=== PATIENT | female | born 1990 | race Caucasian/White ===

== ENCOUNTER 2022-03-10 15:55 | Emergency (ER) | payer BC, MEDICAID, SELFPAY ==
[2022-03-10 16:26] VITALS: PULSE 60; TEMP 36.4; O2SAT 97; BMI 36.0
--- NOTE | 2022-03-10 16:31 | XRR_ITS ---
PROCEDURE INFORMATION: Exam: XR Chest Exam date and time: 03/10/2022 5:01 PM Age: 31 years old Clinical indication: Shortness of breath; Patient HX: SOB history chf cough TECHNIQUE: Imaging protocol: Radiologic exam of the chest. Views: 1 view. COMPARISON: CR XR chest 1V [id number] 09/06/2016 4:49 PM FINDINGS: Lungs: Medial right basilar opacity. Pleural spaces: Unremarkable. No pleural effusion. No pneumothorax. Heart/Mediastinum: Unremarkable. No cardiomegaly. Bones/joints: Unremarkable. XR/XR chest 1V portable [id number] IMPRESSION: Medial right basilar opacity, suspected pneumonia.
[2022-03-10 18:08] LABS: Influenza A by IFA negative (Negative); Influenza B by IFA negative (Negative)
[2022-03-10 18:09] LABS: SARS Covid-2 Antigen negative (Negative)
--- NOTE | 2022-03-10 18:46 | W.ED.SOB ---
HPI - SOB/Dyspnea General: Chief Complaint: Shortness of Breath/Dyspnea Stated Complaint: SOB Hard time breath Time Seen by Provider: 03/10/22 18:37 History of Present Illness: HPI Narrative: 31-year-old female comes in today with complaints of illness for 1-1/2 weeks. Patient reports that she started feeling better but over the past 2 days she started feeling worse with increased shortness of breath and cough. Patient appears nontoxic. Patient does smoke routinely. Review of Systems Const: Reports: body aches Resp: Reports: dyspnea and non-productive cough Physical Exam Const: COMMON NORMALS: alert HENMT: COMMON NORMALS: normocephalic HEAD & SCALP: normocephalic Neck/C-Spine: COMMON NORMALS: full ROM Resp: COMMON NORMALS: normal respiratory effort AUSCULTATION: crackles Laterality: right (Lower lung martino) GI: COMMON NORMALS: Soft to palpation PALPATION: Yes Soft to palpation Extremity: COMMON NORMALS: normal to inspection Neuro: SENSORIUM/ORIENTATION: Yes alert Skin: COMMON NORMALS: turgor normal GENERAL SKIN EXAM: turgor normal Course Vital Signs: Vital signs: Vital Signs Temperature 97.6 F 03/10/22 16:26 Pulse Rate 67 03/10/22 18:57 Respiratory Rate 18 03/10/22 18:57 Blood Pressure 138/81 03/10/22 18:57 Pulse Oximetry 97 03/10/22 18:57 Oxygen Delivery Me thod 03/10/22 18:57 MDM - SOB/Dyspnea Medical Decision Making 31-year-old female comes in today with illness for about 1-1/2 weeks. Patient has had increased shortness of breath over the past couple days. On exam patient has crackles in the right lower lung martino. Heart rates regular. Vital signs are normal. Differential diagnosis includes but not limited to pneumonia, COPD, effusion, CHF. Chest x-ray noted probable pneumonia in the right base. We will treat patient for right basilar pneumonia with doxycycline 100 mg twice daily for 10 days. Patient was also given an albuterol inhaler and 1 dose of dexamethasone 10 mg. Patient was recommended to follow-up with primary care in 1 week or return to the ER for worsening symptoms. Patient reported understanding. Lab Data Labs/Radiology: Radiology Impressions Chest X-Ray 03/10/22 16:31 IMPRESSION: Medial right basilar opacity, suspected pneumonia. Laboratory Results Influenza Type A Ag negative (Negative) 03/10/22 17:40 Influenza Type B Ag negative (Negative) 03/10/22 17:40 SARS-CoV-2 Ag (Rapid) negative (Negative) 03/10/22 17:40 Discharge Plan Discharge Patient Disposition: Home Clinical Impression: Pneumonia Qualifiers: Pneumonia type: due to unspecified organism Laterality: right Lung location: lower lobe of lung Qualified Code(s): J18.9 - Pneumonia, unspecified organism Condition: Stable Prescriptions: New doxycycline monohydrate 100 mg capsule 100 mg PO BID 10 Days Qty: 20 0RF albuterol sulfate 90 mcg/actuation HFA aerosol inhaler 2 inh inhalation Q4H PRN (Reason: shortness of breath or wheezing) Qty: 8.5 0RF Discharge Orders: Discharge ED (Routine); Ordered 03/10/22 Ordered By: Thien Siegel Discharge Diet: Usual diet Discharge Activity: Increase activity as tolerated Patient Instructions: Community Acquired Pneumonia (ED) Activity Restrictions/Additional Instructions: Take antibiotic doxycycline 100 mg 2 times a day for 10 days. Use albuterol inhaler 2 puffs every 4 hours as needed for shortness of breath, persistent coughing, or wheezing. I am encouraging you stop smoking. Make sure to drink plenty of water and fluids. Follow-up with primary care in 1 week for recheck. Return to emergency department for worsening symptoms such as severe chest pain, increasing shortness of breath, or new concerns. Coding Level of Care Code ED [employer] P[employer] Supervisor for Veronica Poe
[2022-03-10 18:57] VITALS: BP 138/81; PULSE 67; RESP 18; O2SAT 97
[2022-03-10] MEDS: dexamethasone 10 mg/mL INJ IM (19:10)
[2022-03-10] MEDS: doxycycline 100 mg Tablet PO (19:10)
[2022-03-10] MEDS: albuterol 8 gm MDI 2 PUFF INHALATION (20:21)
[2022-03-10 20:24] VITALS: PULSE 65; RESP 16; O2SAT 97
[2022-03-10 20:29] VITALS: PULSE 88; RESP 18; O2SAT 100
== END 2022-03-10 20:25 | disposition home or self-care (01) ==
PROVIDERS: Family Medicine; Emergency Provider Nurse Practitioner Family
DX: J18.9 Pneumonia, unspecified organism (principal); F17.200 Nicotine dependence, unspecified, uncomplicated; Z20.822 Contact with and (suspected) exposure to COVID-19
CPT/HCPCS: 71045; 87426; 87804; 94640; 96372; 99284; J1100; J3535

== ENCOUNTER 2022-07-19 11:55 | Emergency (ER) | payer BC, MEDICAID, SELFPAY ==
[2022-07-19 12:12] VITALS: BP 168/103; PULSE 93; RESP 22; TEMP 36.6; O2SAT 98; BMI 40.7
--- NOTE | 2022-07-19 14:48 | CTR_ITS ---
PROCEDURE INFORMATION: Exam: CT Abdomen And Pelvis Without Contrast Exam date and time: 07/19/2022 7:28 PM Age: 32 years old Clinical indication: Abdominal pain; Generalized TECHNIQUE: Imaging protocol: Computed tomography of the abdomen and pelvis without contrast. Radiation optimization: All CT scans at this facility use at least one of these dose optimization techniques: automated exposure control; mA and/or kV adjustment per patient size (includes targeted exams where dose is matched to clinical indication); or iterative reconstruction. REPORTING DATA: Count of CT and Cardiac NM exams in prior 12 months: This patient has received 0 known CTs and 0 known cardiac nuclear medicine studies in the 12 months prior to the current study. COMPARISON: CR XR sacrum coccyx min 2V [id number] 08/18/2017 6:28 PM RADIATION DOSE METRICS: Total DLP (mGy-cm): 1192.63 FINDINGS: Liver: Liver mildly enlarged to 18.7 cm with diffuse fatty infiltration. Gallbladder and bile ducts: Status post cholecystectomy. Pancreas: Normal. No ductal dilation. Spleen: Normal. No splenomegaly. Adrenal glands: Normal. No mass. Kidneys and ureters: Normal. No hydronephrosis. Stomach and bowel: Scattered regions of wall thickening versus underdistention of the distal colon. Apparent wall thickening of the distal stomach. Appendix: No evidence of appendicitis. Intraperitoneal space: Unremarkable. No free air. No significant fluid collection. Vasculature: Unremarkable. No abdominal aortic aneurysm. Lymph nodes: Unremarkable. No enlarged lymph nodes. Urinary bladder: Unremarkable as visualized. Reproductive: Unremarkable as visualized. Bones/joints: Unremarkable. No acute fracture. Soft tissues: Unremarkable. CT/CT abdomen pelvis wo con [id number] IMPRESSION: 1. Scattered regions of wall thickening versus underdistention of the distal colon. Correlate for colitis. 2. Hepatomegaly with diffuse fatty infiltration of the liver. 3. Possible gastritis. 4. Cholecystectomy.
--- NOTE | 2022-07-19 14:49 | ED_ITS ---
Documented by User: Bienvenido Arellano DO 07/20/22 05:18 HPI - Abdominal Pain General: Chief Complaint: Abdominal Pain Stated Complaint: abd pain into back Time Seen by Provider: 07/19/22 14:35 Source: patient Mode of arrival: ambulatory History of Present Illness: 32-year-old female comes into the emergency room complaining of abdominal pain radiating to her back bilaterally in the flanks that started this morning. She is no history of kidney stones. She is on Suboxone has not taken a dose since yesterday. Significant nausea and vomiting she is really unable to tell me if she has any coffee-ground emesis or hematemesis. No dysuria urgency or frequency no hematuria. MD elicited complaint: abdominal pain Onset (ago): minute(s) Location: Epigastric Quality: cramping and stabbing Exacerbating factors: nothing Relieving factors: nothing Associated Symptoms: Reports nausea and vomiting; Denies anorexia, belching, bloating, change in bowel habits, change in stool character, chills, coffee ground emesis, constipation, GI cramping, diarrhea, dyspepsia, dysuria, excessive flatus, fever(s), heartburn, hematochezia, hematuria, hematemesis, fecal incontinence, loose stools, melena, poor appetite and syncope Review of Systems Const: Denies: fever(s) or chills ENMT: Denies: throat pain, ear or mastoid pain, nasal discharge or nasal congestion Card: Denies: chest pain, palpitations, irregular heart rhythm or syncope Resp: Denies: dyspnea, productive cough or non-productive cough GI: Reports: abdominal pain, nausea and vomiting; Denies: hematemesis, coffee ground emesis, heartburn, diarrhea, constipation, bloating, GI cramping, belching, excessive flatus, fecal incontinence, change in bowel habits, change in stool character, hematochezia or melena : Denies: dysuria, urinary frequency, urinary urgency or hematuria Skin/Breast: Denies: rash or pruritus Physical Exam Const: GENERAL APPEARANCE: cooperative and comfortable ORIENTATION/CONSCIOUSNESS: Yes awake, Yes oriented to person, Yes oriented to place and Yes oriented to time HENMT: COMMON NORMALS: normocephalic, atraumatic and hearing grossly normal bilaterally HEAD & SCALP: normocephalic and atraumatic Resp: COMMON NORMALS: normal respiratory effort, No retractions, No use of accessory muscles and clear to auscultation bilaterally AUSCULTATION: clear to auscultation bilaterally Cardio: COMMON NORMALS: regular rate, regular rhythm and No murmurs present (Cardio) RATE: regular rate RHYTHM: regular rhythm GI: COMMON NORMALS: No hepatosplenomegaly present AUSCULTATION: Yes normoactive bowel sounds PALPATION: Yes Tenderness to palpation present (GI) (epigastric), No Guarding due to palpation present (GI) and Yes No hepatosplenomegaly present Extremity: COMMON NORMALS: normal to inspection, capillary refill normal, no clubbing, cyanosis or edema, no calf tenderness and no pedal edema Neuro: SENSORIUM/ORIENTATION: Yes oriented to person, Yes oriented to place and Yes oriented to time Skin: COMMON NORMALS: no rashes or lesions noted GENERAL SKIN EXAM: no rashes or lesions noted Course Vital Signs: Vital signs: Vital Signs Temperature 97.9 F 07/19/22 12:12 Pulse Rate 77 07/19/22 20:32 Respiratory Rate 16 07/19/22 20:32 Blood Pressure 129/70 07/19/22 20:32 Pulse Oximetry 97 07/19/22 20:32 Oxygen Delivery Me thod Room Air 07/19/22 18:28 MDM - Abdominal Pain Medical Decision Making Care signed out to Dr. Yancey at change of shift. See final notes for diagnosis and disposition. Patient presents with vomiting with abdominal pain her blood work here is normal her pain is much improved her abdominal exam at discharge is benign CT showed a possible colitis we will start her on Augmentin along with nausea medicine she is to follow-up with surgery and return if worsening she understands agrees to plan. Lab Data 07/19/22 14:46 07/19/22 14:46 Labs/Radiology: Radiology Impressions Abdomen/Pelvis CT 07/19/22 14:48 IMPRESSION: 1. Scattered regions of wall thickening versus underdistention of the distal colon. Correlate for colitis. 2. Hepatomegaly with diffuse fatty infiltration of the liver. 3. Possible gastritis. 4. Cholecystectomy. Laboratory Results WBC 12.1 10^3/uL (4.0-10.0) H 07/19/22 14:46 RBC 5.08 10^6/uL (4.1-5.3) 07/19/22 14:46 Hgb 14.8 g/dL (11.5-15.3) 07/19/22 14:46 Hct 45.1 % (37.0-47.0) 07/19/22 14:46 MCV 88.8 fl (81-99) 07/19/22 14:46 MCH 29.1 pg (28.0-34.0) 07/19/22 14:46 MCHC 32.8 g/dL (30.0-36.0) 07/19/22 14:46 RDW 12.6 % (12.1-15.1) 07/19/22 14:46 Plt Count 294 10^3/cmm (130-400) 07/19/22 14:46 MPV 10.9 fL (7.4-10.4) H 07/19/22 14:46 Neut % (Auto) 75.1 % 07/19/22 14:46 Lymph % (Auto) 19.6 % 07/19/22 14:46 [place] % (Auto) 3.7 % 07/19/22 14:46 Eos % (Auto) 0.9 % 07/19/22 14:46 Baso % (Auto) 0.3 % 07/19/22 14:46 Neut # (Auto) 9.09 10^3/uL (1.8-7.7) H 07/19/22 14:46 Lymph # (Auto) 2.4 10^3/uL (0.8-4.8) 07/19/22 14:46 [place] # (Auto) 0.5 10^3/uL (0.2-0.9) 07/19/22 14:46 Eos # (Auto) 0.1 10^3/uL (0.0-0.8) 07/19/22 14:46 Baso # (Auto) 0.0 10^3/uL (0.0-0.1) 07/19/22 14:46 Nucleated RBC % (auto) 0 % 07/19/22 14:46 Nucleated RBCs # 0.0 /100WBC 07/19/22 14:46 Sodium 135 mmol/L (136-145) L 07/19/22 14:46 Potassium 4.0 mmol/L (3.5-5.1) 07/19/22 14:46 Chloride 96 mmol/L (98-107) L 07/19/22 14:46 Carbon Dioxide 27 mmol/L (22-29) 07/19/22 14:46 Anion Gap 16.0 (5-19) 07/19/22 14:46 BUN 9 mg/dL (6-20) 07/19/22 14:46 Creatinine 0.8 mg/dL (0.5-0.9) 07/19/22 14:46 GFR Calculation 82.1 mL/min (90-130) L 07/19/22 14:46 Glucose 112 mg/dL (65-115) 07/19/22 14:46 Calculated Osmolality 279 mOsm/kg (285-295) L 07/19/22 14:46 Calcium 9.5 mg/dL (8.5-10.5) 07/19/22 14:46 Magnesium 2.0 mg/dL (1.7-2.3) 07/19/22 14:46 Total Bilirubin 0.3 mg/dL (0.15-1.2) 07/19/22 14:46 AST 53 U/L (0-32) H 07/19/22 14:46 ALT 69 U/L (0-33) H 07/19/22 14:46 Alkaline Phosphatase 136 U/L (35-105) H 07/19/22 14:46 Creatine Kinase 55 U/L (26-192) 07/19/22 14:46 Total Protein 7.9 g/dL (6.6-8.7) 07/19/22 14:46 Albumin 4.3 g/dL (3.5-5.2) 07/19/22 14:46 Globulin 3.6 g/dL (1.3-4.6) 07/19/22 14:46 Lipase 26 U/L (13-60) 07/19/22 14:46 HCG, Qual Negative (Negative) 07/19/22 17:08 Urine Color Dark yellow (Yellow) 07/19/22 17:08 Urine Appearance Clear (CLEAR) 07/19/22 17:08 Urine pH 9 (5-7) H 07/19/22 17:08 Ur Specific [place] 1.015 (1.005-1.030) 07/19/22 17:08 Urine Protein Neg (Negative) 07/19/22 17:08 Urine Glucose (UA) Norm (Normal) 07/19/22 17:08 Urine Ketones 1+ (Negative) H 07/19/22 17:08 Urine Blood Trace (Negative) H 07/19/22 17:08 Urine Nitrate Negative (Negative) 07/19/22 17:08 Urine Bilirubin Neg (Negative) 07/19/22 17:08 Prot Sulfosalicylic Acd Negative (Negative) 07/19/22 17:08 Urine Urobilinogen 1 mg/dL (Negative) H 07/19/22 17:08 Ur Leukocyte Esterase Negative (Negative) 07/19/22 17:08 Urine RBC Rare /hpf (0-2) 07/19/22 17:08 Urine WBC None /hpf (0-5) 07/19/22 17:08 Ur Squamous Epith Cells 10-15 /hpf (0-5) H 07/19/22 17:08 Amorphous Sediment Not Reportable 07/19/22 17:08 Urine Bacteria Trace /hpf (NONE) 07/19/22 17:08 Discharge Plan Discharge Patient Disposition: Home Clinical Impression: Colitis, Abdominal pain Condition: Stable Prescriptions: New ondansetron 4 mg tablet,disintegrating 4 mg PO Q6H PRN (Reason: nausea and vomiting) Qty: 14 0RF Augmentin 500-125 mg tablet 1 tab PO BID Qty: 14 0RF No Action buspirone 5 mg tablet 5 mg PO BID citalopram 40 mg tablet 40 mg PO BEDTIME meloxicam 15 mg tablet 15 mg PO DAILY propranolol 10 mg tablet 10 mg PO BEDTIME Suboxone 8-2 mg film 3 film sublingual DAILY albuterol sulfate 90 mcg/actuation HFA aerosol inhaler 2 inh inhalation Q4H PRN (Reason: shortness of breath or wheezing) Qty: 8.5 0RF Discharge Orders: Discharge ED (Routine); Ordered 07/19/22 Ordered By: Merle Yancey Referrals: Berlin Dahl DO [Physician] - 1-3 days Discharge Diet: Advance as tolerated Discharge Activity: Resume usual activity Patient Instructions: Abdominal Pain (ED), Colitis (ED) Coding Level of Care Code ED Accounting Associate for Chg Fwd Documented by User: Merle Yancey MD 07/19/22 20:30 HPI - Abdominal Pain General: Chief Complaint: Abdominal Pain Stated Complaint: abd pain into back Time Seen by Provider: 07/19/22 14:35 Course Vital Signs: Vital signs: Vital Signs Temperature 97.9 F 07/19/22 12:12 Pulse Rate 77 07/19/22 20:32 Respiratory Rate 16 07/19/22 20:32 Blood Pressure 129/70 07/19/22 20:32 Pulse Oximetry 97 07/19/22 20:32 Oxygen Delivery Me thod Room Air 07/19/22 18:28 MDM - Abdominal Pain Medical Decision Making Patient presents with vomiting with abdominal pain her blood work here is normal her pain is much improved her abdominal exam at discharge is benign CT showed a possible colitis we will start her on Augmentin along with nausea medicine she is to follow-up with surgery and return if worsening she understands agrees to alisha hightower. Medical Records I reviewed the patient's medical records. Lab Data I reviewed the patient's lab results. 07/19/22 14:46 07/19/22 14:46 Labs/Radiology: Radiology Impressions Abdomen/Pelvis CT 07/19/22 14:48 IMPRESSION: 1. Scattered regions of wall thickening versus underdistention of the distal colon. Correlate for colitis. 2. Hepatomegaly with diffuse fatty infiltration of the liver. 3. Possible gastritis. 4. Cholecystectomy. Laboratory Results WBC 12.1 10^3/uL (4.0-10.0) H 07/19/22 14:46 RBC 5.08 10^6/uL (4.1-5.3) 07/19/22 14:46 Hgb 14.8 g/dL (11.5-15.3) 07/19/22 14:46 Hct 45.1 % (37.0-47.0) 07/19/22 14:46 MCV 88.8 fl (81-99) 07/19/22 14:46 MCH 29.1 pg (28.0-34.0) 07/19/22 14:46 MCHC 32.8 g/dL (30.0-36.0) 07/19/22 14:46 RDW 12.6 % (12.1-15.1) 07/19/22 14:46 Plt Count 294 10^3/cmm (130-400) 07/19/22 14:46 MPV 10.9 fL (7.4-10.4) H 07/19/22 14:46 Neut % (Auto) 75.1 % 07/19/22 14:46 Lymph % (Auto) 19.6 % 07/19/22 14:46 [place] % (Auto) 3.7 % 07/19/22 14:46 Eos % (Auto) 0.9 % 07/19/22 14:46 Baso % (Auto) 0.3 % 07/19/22 14:46 Neut # (Auto) 9.09 10^3/uL (1.8-7.7) H 07/19/22 14:46 Lymph # (Auto) 2.4 10^3/uL (0.8-4.8) 07/19/22 14:46 [place] # (Auto) 0.5 10^3/uL (0.2-0.9) 07/19/22 14:46 Eos # (Auto) 0.1 10^3/uL (0.0-0.8) 07/19/22 14:46 Baso # (Auto) 0.0 10^3/uL (0.0-0.1) 07/19/22 14:46 Nucleated RBC % (auto) 0 % 07/19/22 14:46 Nucleated RBCs # 0.0 /100WBC 07/19/22 14:46 Sodium 135 mmol/L (136-145) L 07/19/22 14:46 Potassium 4.0 mmol/L (3.5-5.1) 07/19/22 14:46 Chloride 96 mmol/L (98-107) L 07/19/22 14:46 Carbon Dioxide 27 mmol/L (22-29) 07/19/22 14:46 Anion Gap 16.0 (5-19) 07/19/22 14:46 BUN 9 mg/dL (6-20) 07/19/22 14:46 Creatinine 0.8 mg/dL (0.5-0.9) 07/19/22 14:46 GFR Calculation 82.1 mL/min (90-130) L 07/19/22 14:46 Glucose 112 mg/dL (65-115) 07/19/22 14:46 Calculated Osmolality 279 mOsm/kg (285-295) L 07/19/22 14:46 Calcium 9.5 mg/dL (8.5-10.5) 07/19/22 14:46 Magnesium 2.0 mg/dL (1.7-2.3) 07/19/22 14:46 Total Bilirubin 0.3 mg/dL (0.15-1.2) 07/19/22 14:46 AST 53 U/L (0-32) H 07/19/22 14:46 ALT 69 U/L (0-33) H 07/19/22 14:46 Alkaline Phosphatase 136 U/L (35-105) H 07/19/22 14:46 Creatine Kinase 55 U/L (26-192) 07/19/22 14:46 Total Protein 7.9 g/dL (6.6-8.7) 07/19/22 14:46 Albumin 4.3 g/dL (3.5-5.2) 07/19/22 14:46 Globulin 3.6 g/dL (1.3-4.6) 07/19/22 14:46 Lipase 26 U/L (13-60) 07/19/22 14:46 HCG, Qual Negative (Negative) 07/19/22 17:08 Urine Color Dark yellow (Yellow) 07/19/22 17:08 Urine Appearance Clear (CLEAR) 07/19/22 17:08 Urine pH 9 (5-7) H 07/19/22 17:08 Ur Specific [place] 1.015 (1.005-1.030) 07/19/22 17:08 Urine Protein Neg (Negative) 07/19/22 17:08 Urine Glucose (UA) Norm (Normal) 07/19/22 17:08 Urine Ketones 1+ (Negative) H 07/19/22 17:08 Urine Blood Trace (Negative) H 07/19/22 17:08 Urine Nitrate Negative (Negative) 07/19/22 17:08 Urine Bilirubin Neg (Negative) 07/19/22 17:08 Prot Sulfosalicylic Acd Negative (Negative) 07/19/22 17:08 Urine Urobilinogen 1 mg/dL (Negative) H 07/19/22 17:08 Ur Leukocyte Esterase Negative (Negative) 07/19/22 17:08 Urine RBC Rare /hpf (0-2) 07/19/22 17:08 Urine WBC None /hpf (0-5) 07/19/22 17:08 Ur Squamous Epith Cells 10-15 /hpf (0-5) H 07/19/22 17:08 Amorphous Sediment Not Reportable 07/19/22 17:08 Urine Bacteria Trace /hpf (NONE) 07/19/22 17:08 Discharge Plan Discharge Patient Disposition: Home Clinical Impression: Colitis, Abdominal pain Condition: Stable Prescriptions: New ondansetron 4 mg tablet,disintegrating 4 mg PO Q6H PRN (Reason: nausea and vomiting) Qty: 14 0RF Augmentin 500-125 mg tablet 1 tab PO BID Qty: 14 0RF No Action buspirone 5 mg tablet 5 mg PO BID citalopram 40 mg tablet 40 mg PO BEDTIME meloxicam 15 mg tablet 15 mg PO DAILY propranolol 10 mg tablet 10 mg PO BEDTIME Suboxone 8-2 mg film 3 film sublingual DAILY albuterol sulfate 90 mcg/actuation HFA aerosol inhaler 2 inh inhalation Q4H PRN (Reason: shortness of breath or wheezing) Qty: 8.5 0RF Discharge Orders: Discharge ED (Routine); Ordered 07/19/22 Ordered By: Merle Yancey Referrals: Berlin Dahl DO [Physician] - 1-3 days Discharge Diet: Advance as tolerated Discharge Activity: Resume usual activity Patient Instructions: Abdominal Pain (ED), Colitis (ED) Coding Level of Care Code ED Accounting Associate for Veronica Poe
[2022-07-19] MEDS: morphine 4 mg/mL SDV 1 mL IVP ×2 (15:02→19:18)
[2022-07-19] MEDS: ondansetron 2 mg/ML SDV 2 mL 4 MG IVP ×2 (15:02→19:18)
[2022-07-19] MEDS: sodium chloride 0.9% 1,000 ML 999 ML IV (15:02)
[2022-07-19 15:23] LABS: Basophils % 0.3 %; Eosinophils # 0.1 10^3/uL (0.0-0.8); Eosinophils % 0.9 %; Hematocrit 45.1 % (37.0-47.0); Hemoglobin 14.8 g/dL (11.5-15.3); Lymphocytes # 2.4 10^3/uL (0.8-4.8); Lymphocytes % 19.6 %; Mean Corpuscular HGB Conc 32.8 g/dL (30.0-36.0); Mean Corpuscular Hemoglobin 29.1 pg (28.0-34.0); Mean Corpuscular Volume 88.8 fl (81-99); Mean Platelet Volume 10.9 fL (7.4-10.4); Monocytes # 0.5 10^3/uL (0.2-0.9); Monocytes % 3.7 %; Neutrophils # 9.09 10^3/uL (1.8-7.7); Neutrophils % 75.1 %; Nucleated Red Blood Cells % 0 %; Platelet Count 294 10^3/cmm (130-400); Red Blood Count 5.08 10^6/uL (4.1-5.3); Red Cell Distribution Width 12.6 % (12.1-15.1); White Blood Count 12.1 10^3/uL (4.0-10.0)
[2022-07-19 15:37] LABS: Alanine Aminotransferase 69 U/L (0-33); Albumin Level 4.3 g/dL (3.5-5.2); Alkaline Phosphatase 136 U/L (35-105); Aspartate Amino Transferase 53 U/L (0-32); Blood Urea Nitrogen 9 mg/dL (6-20); Calcium 9.5 mg/dL (8.5-10.5); Carbon Dioxide 27 mmol/L (22-29); Chloride 96 mmol/L (98-107); Creatine Phosphokinase 55 U/L (26-192); Globulin 3.6 g/dL (1.3-4.6); Glomerular Filtration Rate 82.1 mL/min (90-130); Glucose 112 mg/dL (65-115); Lipase 26 U/L (13-60); Osmolality Calculated 279 mOsm/kg (285-295); Sodium 135 mmol/L (136-145); Total Bilirubin 0.3 mg/dL (0.15-1.2); Total Protein 7.9 g/dL (6.6-8.7)
[2022-07-19] MEDS: promethazine 25 mg/mL SDV 1 mL IM (16:58)
[2022-07-19 17:57] LABS: Add Urine Microscopic? YES; Bilirubin Urine Neg (Negative); Blood Urine Trace (Negative); Glucose Urine UA Norm (Normal); Ketones Urine 1+ (Negative); Leukocyte Esterase Urine Negative (Negative); Nitrate Urine Negative (Negative); Protein Urine Neg (Negative); Specific Gravity, Urine 1.015 (1.005-1.030); Urine Appearance Clear (CLEAR); Urine Color Dark Yellow (Yellow); Urobilinogen Urine 1 mg/dL (Negative); pH Urine 9 (5-7)
[2022-07-19 17:58] LABS: Add Urine Culture? No; Bacteria Urine TRACE /hpf; HCG Qualitative Urine. Negative (Negative); RBC Urine RARE /hpf (0-2); Sulfosalicylic Acid Urine Negative (Negative)
[2022-07-19 18:28] VITALS: BP 120/72; PULSE 75; O2SAT 98
[2022-07-19 19:18] VITALS: RESP 18
[2022-07-19 20:32] VITALS: BP 129/70; PULSE 77; RESP 16; O2SAT 97
--- NOTE | 2022-07-23 10:35 | DCPLANNER ---
manager bridge called patient due to no primary care physician. manager bridge left a message for patient to return field nurse case manager phone call if she would like help in getting established with a provider.
== END 2022-07-19 20:32 | disposition home or self-care (01) ==
PROVIDERS: Emergency Medicine; Family Medicine; Emergency Provider Emergency Medicine
DX: K52.9 Noninfective gastroenteritis and colitis, unspecified (principal)
CPT/HCPCS: 74176; 80053; 81001; 81025; 82550; 83690; 83735; 85025; 96361; 96372; 96374; 96375; 96376; 99285; J2270; J2405; J2550; J7030